=== PATIENT | female | born 1950 | race Caucasian/White ===

== ENCOUNTER 2016-12-31 08:51 | Outpatient (CLI) | payer MEDICARE ==
--- NOTE | 2016-12-31 11:28 | CARDIAC PROCEDURE NOTE ---
DATE OF SERVICE: 12/31/2016 00:00:00 PRIMARY CARE PROVIDER: Milena Neumann PA-C. PROCEDURE: Stress echocardiogram. PROCEDURE SYMPTOMS: Weakness, lightheadedness, and abnormal ECG. CARDIAC RISK FACTORS: Age, hypertension, hyperlipidemia. PREVIOUS CARDIAC PROCEDURES: Failed echo stress test. CURRENT SYMPTOMATOLOGY: None. CLINICAL HISTORY: A 66-year-old woman without known coronary artery disease. INITIAL RESTING VITAL SIGNS: Blood pressure 110/80, heart rate 111. Height 65 inches, weight 178 pounds, BMI 29.6. PROCEDURE AND FINDINGS: The patient's identity and date were verified and consent signed. After resting echocardiogram images were obtained, the patient performed treadmill exercise using a Peterson protocol completing 4 minutes, 54 seconds and an estimated workload of 7.0 metabolic equivalents. Her predicted exercise time was 5:00-6:15. Maximal blood pressure was 156/86 with a heart rate of 130 beats per minute or 85% of maximum predicted heart rate for age. The blood pressure response to exercise was normal. The patient stopped because she was short of air. The resting ECG demonstrated normal sinus rhythm with a single Q-wave noted in lead III. There was 0.5 ST segment depression and upsloping with rare single PVCs. Post-exercise images were obtained immediately on cessation of exercise. The patient was noted to have a 7 mm Q-wave in lead III only on standing, which disappeared with exercise. FINAL IMPRESSION 1. No ECG signs of ischemia, test incomplete, awaiting echocardiographic report. 2. Negative stress test clinically for angina. 3. Rare monomorphic PVCs. 4. Reversible Q-waves in lead III is a positional benign finding. JOB #: [id number] [facility] JOB #:[id number] [facility]
[2016-12-31 17:35] VITALS: BP 110/80
== END 2016-12-31 08:52 | disposition home or self-care (01) ==
LOC: DI 08:51
PROVIDERS: ATTEND Physician Assistant Medical
DX: R53.1 Weakness (principal); R42 Dizziness and giddiness; I10 Essential (primary) hypertension; E78.5 Hyperlipidemia, unspecified
CPT/HCPCS: 93351

== ENCOUNTER 2017-04-20 10:03 | Outpatient (CLI) | payer MEDICARE | END 2017-04-20 10:04 | disposition home or self-care (01) | LOC: SC 10:03 | PROVIDERS: ATTEND Internal Medicine Pulmonary Disease | DX: G47.8 Other sleep disorders (principal); R06.83 Snoring; R53.83 Other fatigue | CPT/HCPCS: 99203; G0463; 99212 ==

== ENCOUNTER 2017-06-07 19:27 | Outpatient (CLI) | payer MEDICARE | END 2017-06-07 19:28 | disposition home or self-care (01) | LOC: SC 19:27 | PROVIDERS: ATTEND Internal Medicine Pulmonary Disease | DX: G47.33 Obstructive sleep apnea (adult) (pediatric) (principal); G47.61 Periodic limb movement disorder | CPT/HCPCS: 95810 ==

== ENCOUNTER 2017-06-17 10:27 | Outpatient (CLI) | payer MEDICARE ==
--- NOTE | 2017-06-18 10:19 | Mammography Report ---
DIGITAL SCREENING MAMMOGRAM: 06/17/2017 HISTORY: Routine. COMPARISON: 06/06/2015, 09/14/2013, 08/12/2012, 07/15/2011 and 04/29/2010. TECHNIQUE: Routine CC and MLO projections were obtained of the breasts. FINDINGS: There is extensive fatty replacement of the breast tissue. There is no dominant mass, architectural distortion, skin thickening, suspicious microcalcifications, or interval change. IMPRESSION: NEGATIVE. BI-RADS CODE 1-NEGATIVE. SUGGEST RETURN TO ROUTINE SCREENING IN 12 MONTHS. STANDARD QUALIFYING STATEMENTS: 1. This examination was reviewed with the aid of Computer-Aided Detection (CAD). 2. A negative or benign imaging report should not delay biopsy if clinically suspicious findings are present. Consider surgical consultation if warranted. More than 5% of cancers are not identified by imaging. 3. Dense breasts may obscure an underlying neoplasm. TD: 06/18/2017 10:17
== END 2017-06-17 10:28 | disposition home or self-care (01) ==
LOC: DI.N 10:27
PROVIDERS: ATTEND Family Medicine
DX: Z12.31 Encounter for screening mammogram for malignant neoplasm of breast (principal)
CPT/HCPCS: 77067

== ENCOUNTER 2017-07-05 14:01 | Outpatient (CLI) | payer MEDICARE | END 2017-07-05 14:02 | disposition home or self-care (01) | LOC: SC 14:01 | PROVIDERS: ATTEND Internal Medicine Pulmonary Disease | DX: G47.33 Obstructive sleep apnea (adult) (pediatric) (principal) | CPT/HCPCS: 99213; G0463; 99212 ==

== ENCOUNTER 2017-09-02 12:27 | Outpatient (CLI) | payer MEDICARE ==
--- NOTE | 2017-09-02 15:54 | DEXA Report ---
Procedure Date: 09/02/2017 Accession Number: [id number] / [id number] Procedure: DEX - Dexa Spine and/or Hip CPT Code: FULL RESULT: EXAM: Dexa Spine and/or Hip DATE: 09/02/2017 12:59 PM CLINICAL HISTORY: POST MENOPAUSAL STATUS TECHNIQUE: Dual energy x-ray absorptiometry (DXA) was performed on a [employer] System. Regions measured are the AP Spine, femoral neck, and if needed forearm. COMPARISON: None. In accordance with the International Society for Clinical Densitometry (ISCD) guidelines, data from previous exams may be reanalyzed using current recommendations and techniques. This is done to allow a more accurate basis for comparison with the current study. FINDINGS: The data for the lumbar spine is as follows: BMD (g/cm/cm) T-SCORE Z-SCORE REGION L1 1.334 1.7 2.8 L2 1.348 1.2 2.3 L3 1.390 1.6 2.7 L4 1.460 2.2 3.2 TOTAL 1.393 1.8 2.8 NOTE: All evaluable vertebrae are used for classification The data for the hip is as follows: BMD (g/cm/cm) T-SCORE Z-SCORE REGION Neck 0.946 -0.7 0.6 TOTAL 1.062 0.4 1.4 NOTE: The femoral neck or total proximal femur, whichever is lowest, is used for classification. IMPRESSION: THE WHO CLASSIFICATION BASED ON THE INTERNATIONAL REFERENCE STANDARD IS NORMAL. THE FRACTURE RISK IS NOT INCREASED. RECOMMENDATION: Patients with diagnosis of osteoporosis or osteopenia should have regular bone mineral density assessment. For those eligible for Medicare, routine testing is allowed once every 2 years. Testing frequency can be increased for patients who have rapidly progressing disease or for those who are receiving medical therapy to restore bone mass. COMMENT: World Health Organization (WHO) definitions for osteoporosis and osteopenia: NORMAL BMD: T-score at -1.0 or higher, fracture risk is low OSTEOPENIA BMD: T-score between -1.0 and -2.5, fracture risk is increased. OSTEOPOROSIS BMD: T-score at -2.5 or lower, fracture risk is high. National Osteoporosis Foundation recommends: 1. Obtain adequate dietary calcium (at least 1200 mg per day) and vitamin D (400-800 international units per day). 2. Participate, as appropriate, in regular weightbearing and muscle-strengthening exercise. 3. Avoid tobacco use and reduce alcohol and caffeine intake. 4. For more detailed information see the website at www.NOF.org.
== END 2017-09-02 12:28 | disposition home or self-care (01) ==
LOC: DI 12:27
PROVIDERS: ATTEND Physician Assistant
DX: N95.1 Menopausal and female climacteric states (principal)
CPT/HCPCS: 77080

== ENCOUNTER 2017-09-13 13:18 | Outpatient (CLI) | payer MEDICARE | END 2017-09-13 13:19 | disposition home or self-care (01) | LOC: SC 13:18 | PROVIDERS: ATTEND Internal Medicine Pulmonary Disease | DX: Z53.9 Procedure and treatment not carried out, unspecified reason (principal) ==

== ENCOUNTER 2017-09-27 18:42 | Outpatient (CLI) | payer MEDICARE | END 2017-09-27 18:43 | disposition home or self-care (01) | LOC: SC 18:42 | PROVIDERS: ATTEND Internal Medicine Pulmonary Disease | DX: G47.33 Obstructive sleep apnea (adult) (pediatric) (principal); G47.61 Periodic limb movement disorder | CPT/HCPCS: 95811 ==

== ENCOUNTER 2017-10-04 14:16 | Outpatient (CLI) | payer MEDICARE | END 2017-10-04 14:17 | disposition home or self-care (01) | LOC: SC 14:16 | PROVIDERS: ATTEND Internal Medicine Pulmonary Disease | DX: G47.33 Obstructive sleep apnea (adult) (pediatric) (principal) | CPT/HCPCS: 99213; G0463; 99212 ==

== ENCOUNTER 2017-11-08 15:25 | Outpatient (CLI) | payer MEDICARE | END 2017-11-08 15:26 | disposition home or self-care (01) | LOC: SC 15:25 | PROVIDERS: ATTEND Internal Medicine Pulmonary Disease | DX: G47.33 Obstructive sleep apnea (adult) (pediatric) (principal) | CPT/HCPCS: 99213; G0463; 99212 ==

== ENCOUNTER 2017-11-30 13:55 | Outpatient (CLI) | payer MEDICARE | END 2017-11-30 13:56 | disposition home or self-care (01) | LOC: NS 13:55 | PROVIDERS: ATTEND Physician Assistant | DX: Z71.3 Dietary counseling and surveillance (principal); E78.2 Mixed hyperlipidemia; Z68.30 Body mass index [BMI] 30.0-30.9, adult; E66.09 Other obesity due to excess calories | CPT/HCPCS: 97802 ==

== ENCOUNTER 2018-04-16 17:52 | Outpatient (CLI) | payer MEDICARE | END 2018-04-16 17:53 | disposition critical access hospital (66) | LOC: EMS 17:52 | PROVIDERS: ATTEND Surgery | DX: R07.9 Chest pain, unspecified (principal); F41.9 Anxiety disorder, unspecified; R06.02 Shortness of breath; R11.0 Nausea; R53.83 Other fatigue; R41.0 Disorientation, unspecified | CPT/HCPCS: A0425; A0427 ==

== ENCOUNTER 2018-04-16 18:11 | Emergency (ER) | payer MEDICARE ==
--- NOTE | 2018-04-16 18:26 | ED Physician Documentation ---
History of Present Illness - Stated complaint Stated Complaint: CP - Chief complaint Chief Complaint: Cardiac - Additonal information Additional information: 67-year-old Female presents the emergency department with sudden onset of chest pain, shortness of breath and lightheadedness. The patient's symptoms have resolved since arriving the emergency department. The patient's symptoms improved on their own and there is no clear triggering factors. The patient has had multiple visits to another emergency department for similar symptoms. The patient is pending a referral to cardiology to further assess her increasing symptoms. The patient also reports a racing heart. No other associated symptoms. Symptoms when they occurred were severe and currently the patient has only mild symptoms Review of Systems Constitutional: denies: Fever, Fatigue Eyes: denies: Discharge Ears: denies: Ear pain Nose: denies: Congestion Throat: denies: Sore throat Cardiac: reports: Chest pain / pressure, Palpitations Respiratory: reports: Dyspnea GI: denies: Abdominal Pain : denies: Dysuria Skin: denies: Rash Musculoskeletal: denies: Neck pain Neurologic: reports: Near syncope. denies: Generalized weakness Immunocompromised: denies: Chemotherapy PD PAST MEDICAL HISTORY - Past Medical History Cardiovascular: Hypertension, High cholesterol Endocrine/Autoimmune: HyPOthyroidism Psych: Depression, Anxiety Musculoskeletal: Osteoarthritis, Other - Past Surgical History Past Surgical History: Yes General: Colonoscopy Ortho: Arthroscopic surgery /[employer]ME [employer]APER: Oophrectomy HEENT: Tonsil/Adenoidectomy - Present Medications Home Medications: Ambulatory Orders Medication Instructions Recorded Confirmed Hydrochlorothiazide 25 mg PO DAILY 09/21/12 04/16/18 Levothyroxine [Synthroid] 75 mcg PO DAILY 09/21/12 04/16/18 clonazePAM [Klonopin] 0.5 mg PO DAILY 09/21/12 04/16/18 Losartan [Cozaar] 50 mg PO DAILY 08/01/15 04/16/18 Propranolol [Inderal] 10 mg PO BID 08/01/15 04/16/18 clonazePAM [KlonoPIN] 0.5 mg PO DAILY 08/01/15 04/16/18 traZODone [Desyrel] 100 mg PO DAILY 08/01/15 04/16/18 Desvenlafaxine [Desvenlafaxine ER] 100 mg PO DAILY 04/16/18 04/16/18 - Allergies Allergies/Adverse Reactions: Allergies Allergy/AdvReac Type Severity Reaction Status Date / Time codeine [Codeine] Allergy Intermediate Dizziness Verified 04/16/18 18:15 - Social History Does the pt smoke?: No Smoking Status: Never smoker Does the pt drink ETOH?: No Does the pt have substance abuse?: No - Immunizations Immunizations are current?: Yes - POLST Patient has POLST: No PD ED PE NORMAL - General General: Alert and oriented X 3, No acute distress - HEENT HEENT: Atraumatic, PERRL, EOMI, Ears normal - Neck Neck: Supple, no meningeal sign - Cardiac Cardiac: RRR, Strong equal pulses - Respiratory Respiratory: No respiratory distress - Abdomen Abdomen: Soft, Non tender - Back Back: No CVA TTP - Derm Derm: Normal color - Extremities Extremities: No deformity - Neuro Neuro: Alert and oriented X 3, Normal speech - Psych Psych: Normal mood Results - Vitals Vitals: Vital Signs - 24 hr 04/16/18 04/16/18 04/16/18 18:13 18:22 20:18 Temperature 36 C L Heart Rate 90 100 95 Respiratory 20 20 17 Rate Blood Pressure 152/93 H 152/93 H 141/75 H O2 Saturation 96 99 99 Oxygen O2 Source Room air - EKG (time done) No standard instances Rate: Rate (enter#) (96) Rhythm: NSR [place]: Normal Intervals: Normal [place] QRS: Normal Ischemia: Normal ST segments - Labs Labs: Laboratory Tests 04/16/18 04/16/18 04/16/18 18:25 18:25 18:25 WBC 8.3 RBC 4.73 Hgb 14.7 Hct 43.8 MCV 92.6 MCH 31.2 H MCHC 33.7 RDW 13.2 Plt Count 191 MPV 10.5 Neut # (Auto) 5.3 Lymph # (Auto) 2.3 Vance # (Auto) 0.5 Eos # (Auto) 0.1 Baso # (Auto) 0.0 Absolute Nucleated RBC 0.01 Nucleated RBC % 0.1 D-Dimer Sodium 137 Potassium 3.3 L Chloride 101 Carbon Dioxide 25 Anion Gap 11.0 BUN 15 Creatinine 0.6 Estimated GFR (MDRD) 99 Glucose 134 H Calcium 9.2 Total Bilirubin 0.9 AST 27 ALT 29 Alkaline Phosphatase 84 Troponin I < 0.04 Total Protein 7.5 Albumin 4.0 Globulin 3.5 Albumin/Globulin Ratio 1.1 Lipase 35 04/16/18 18:25 WBC RBC Hgb Hct MCV MCH MCHC RDW Plt Count MPV Neut # (Auto) Lymph # (Auto) Vance # (Auto) Eos # (Auto) Baso # (Auto) Absolute Nucleated RBC Nucleated RBC % D-Dimer 234.3 Sodium Potassium Chloride Carbon Dioxide Anion Gap BUN Creatinine Estimated GFR (MDRD) Glucose Calcium Total Bilirubin AST ALT Alkaline Phosphatase Troponin I Total Protein Albumin Globulin Albumin/Globulin Ratio Lipase - Rads (name of study) CXR Radiology: Final report received, See rad report PD MEDICAL DECISION MAKING - ED course ED course: Given the fact that the patient is having increasing symptoms and this is now her third visit in just a couple weeks for similar symptoms I recommended that we transfer her to a higher level care for a more urgent chest pain rule out and possible echocardiogram and possible evaluation by cardiology symptoms. The patient understands and agrees to the plan. The patient is a [facility] and the [facility] transfer center was contacted and they arrange for transfer to [facility] Departure - Departure Disposition: 02 Transfer Acute Care Hosp Clinical Impression: Chest pain Qualifiers: Chest pain type: unspecified Qualified Code(s): R07.9 - Chest pain, unspecified
[2018-04-16 18:34] LABS: BASOPHILS % (AUTO) 0.6 %; EOSINOPHILS # (AUTO) 0.1 10^3/uL (0.0-0.7); EOSINOPHILS % (AUTO) 1.7 %; HGB - HEMOGLOBIN 14.7 g/dL (12.0-16.0); LYMPHOCYTES # (AUTO) 2.3 10^3/uL (1.5-3.5); LYMPHOCYTES % (AUTO) 27.5 %; MEAN CORPUSCULAR HEMOGLOBIN 31.2 pg (27.0-31.0); MEAN CORPUSCULAR HGB CONC 33.7 g/dL (32.0-36.0); MEAN CORPUSCULAR VOLUME 92.6 fL (81.0-99.0); MEAN PLATELET VOLUME 10.5 fL (7.9-10.8); MONOCYTES # (AUTO) 0.5 10^3/uL (0.0-1.0); NEUTROPHILS # (AUTO) 5.3 10^3/uL (1.5-6.6); NEUTROPHILS % (AUTO) 64.2 %; PLT - PLATELET COUNT 191 10^3/uL (130-450); RED BLOOD COUNT 4.73 10^6/uL (4.20-5.40); RED CELL DISTRIBUTION WIDTH 13.2 % (12.0-15.0); WHITE BLOOD COUNT 8.3 x10^3/uL (4.8-10.8)
[2018-04-16 18:44] LABS: ALBUMIN/GLOBULIN RATIO 1.1 (1.0-2.2); BILIRUBIN,TOTAL 0.9 mg/dL (0.2-1.0); CALCIUM 9.2 mg/dL (8.5-10.3); CREATININE 0.6 mg/dL (0.4-1.0); TOTAL PROTEIN 7.5 g/dL (6.7-8.2)
--- NOTE | 2018-04-16 19:07 | XRAY Report ---
Reason: tightness Procedure Date: 04/16/2018 Accession Number: [id number] / [id number] Procedure: XR - Chest 1 View X-Ray CPT Code: 74436 FULL RESULT: EXAM: CHEST RADIOGRAPHY EXAM DATE: 04/16/2018 06:54 PM. CLINICAL HISTORY: Tightness. COMPARISON: 05/02/2015. TECHNIQUE: 1 view. FINDINGS: Lungs/Pleura: No focal opacities evident. No pleural effusion. No pneumothorax. Mediastinum: Within exam limitations, the cardiomediastinal contour is normal. Other: None. IMPRESSION: Normal single view chest. RADIA
[2018-04-16 20:19] VITALS: BP 141/75
== END 2018-04-16 22:56 | disposition short-term general hospital (02) ==
LOC: EDUNIT# → ED 18:11
DX: R07.9 Chest pain, unspecified (principal); R94.31 Abnormal electrocardiogram [ECG] [EKG]; I10 Essential (primary) hypertension; E78.00 Pure hypercholesterolemia, unspecified; E03.9 Hypothyroidism, unspecified
CPT/HCPCS: 36415; 71045; 80053; 83690; 84484; 85025; 85379; 93005; 99284; 99285

== ENCOUNTER 2018-05-03 17:37 | Outpatient (CLI) | payer MEDICARE ==
--- NOTE | 2018-05-04 11:34 | Ultrasound Report ---
Reason: NEAR SYNCOPE Procedure Date: 05/03/2018 Accession Number: [id number] / [id number] Procedure: US - Carotid Doppler Complete CPT Code: FULL RESULT: EXAM: BILATERAL CAROTID AND VERTEBRAL ARTERY DUPLEX DOPPLER ULTRASOUND: EXAM DATE: 05/03/2018 06:00 PM CLINICAL HISTORY: Near syncope. COMPARISON: None. TECHNIQUE: Grayscale imaging, color Doppler, and duplex spectral Doppler were used to evaluate the carotid and vertebral arteries bilaterally. Static images were obtained. FINDINGS: No significant plaque is identified in the right or left common or internal carotid arteries. Normal antegrade flow is present in bilateral vertebral arteries. VELOCITIES (cm/sec): Right CCA Mid: PSV 72.4 cm/sec CCA Dist: PSV 70.8 cm/sec ICA Prox: PSV 39.2 cm/sec, EDV 10.7 cm/sec ICA Mid: PSV 61.2 cm/sec, EDV 18.4 cm/sec ICA Dist: PSV 71.6 cm/sec, EDV 25.7 cm/sec ECA: PSV 66.4 cm/sec Vert: PSV 45 cm/sec ICA/CCA: 1.0 Left CCA Mid: PSV 71.6 cm/sec CCA Dist: PSV 61.8 cm/sec ICA Prox: PSV 68.4 cm/sec, EDV 23.7 cm/sec ICA Mid: PSV 63.7 cm/sec, EDV 26.8 cm/sec ICA Dist: PSV 58.1 cm/sec, EDV 20 cm/sec ECA: PSV 52.2 cm/sec Vert: PSV 41.1 cm/sec ICA/CCA: 1.1 ICA diameter stenosis: Right: <50% by velocity and <70% by NASCET criteria. Left: <50% by velocity and <70% by NASCET criteria. IMPRESSION: 1. No significant bilateral carotid artery plaquing. 2. In the right carotid artery there are no elevated carotid artery velocities to suggest hemodynamically significant stenosis. 3. In the left carotid artery there are no elevated carotid artery velocities to suggest hemodynamically significant stenosis. 4. Normal antegrade flow is present in bilateral vertebral arteries. General Recommendations: Stenosis =50% ICA - Follow-up ultrasound 6-12 months Stenosis <50% ICA - High Risk Patient with plaque - Follow-up ultrasound 1-2 years Normal Study but High Risk Patient - Follow-up ultrasound 3-5 years Management recommendations and diagnostic criteria are based on current IAC endorsed standards in Carotid Artery Stenosis: Grayscale and Doppler Ultrasound Diagnosis. Validated velocity measurements with angiographic measurements and velocity criteria are extrapolated from diameter data as defined by the Society of Radiologists in Ultrasound Consensus Conference Radiology 2003; 229;340-346. RADIA
== END 2018-05-03 17:38 | disposition home or self-care (01) ==
LOC: DI 17:37
PROVIDERS: ATTEND Internal Medicine Cardiovascular Disease
DX: R55 Syncope and collapse (principal)
CPT/HCPCS: 93880

== ENCOUNTER 2018-05-27 09:29 | Outpatient (CLI) | payer MEDICARE ==
[2018-05-27] MEDS ORDERED: IOPAMIDOL-300 100 ML VIAL ONE (11:07)
[2018-05-27 11:31] LABS: CREATININE 0.7 mg/dL (0.4-1.0)
[2018-05-27 11:44] LABS: CALCIUM 9.6 mg/dL (8.5-10.3)
[2018-05-27] MEDS ORDERED: IOPAMIDOL-300 100 ML VIAL IVP ONE (11:54)
--- NOTE | 2018-05-27 13:32 | CT Report ---
Reason: SHORTNESS OF BREATH Procedure Date: 05/27/2018 Accession Number: [id number] / [id number] Procedure: CT - ANGIO CHEST W/WO CPT Code: FULL RESULT: EXAM: CT ANGIOGRAM CHEST EXAM DATE: 05/27/2018 11:51 AM. CLINICAL HISTORY: SHORTNESS OF BREATH. COMPARISON: CHEST ANGIO 05/03/2015 8:12 PM. TECHNIQUE: Routine helical imaging was performed through the chest in the pulmonary arterial phase. IV Contrast: ISOVUE 300 80mL. Reconstructions: Coronal 3-D MIP reconstructions.Sagittal and coronal. In accordance with CT protocol optimization, one or more of the following dose reduction techniques were utilized for this exam: automated exposure control, adjustment of mA and/or KV based on patient size, or use of iterative reconstructive technique. FINDINGS: Pulmonary Arteries: Diagnostic quality: Adequate through the segmental arteries. No evidence for acute or chronic pulmonary emboli. RV/LV is within normal limits. There is no interventricular septal bowing. There is no reflux of contrast material in the IVC. Lungs/Pleura: Basilar scar/atelectasis. No endobronchial obstruction. No pneumothorax. No pleural effusions. No vascular congestion. Mediastinum: Heart is enlarged. Small pericardial effusion. Small hiatal hernia. No enlarged mediastinal or hilar lymph nodes. Thyroid gland is not distinctly visualized. No mediastinal hematoma. Thoracic Aorta: Thoracic aortic calcified plaque. Maximal size of the mid ascending aorta measures 3.8 cm. Thoracic aorta is tortuous. Upper Abdomen: Included portions of the liver, gallbladder, spleen and pancreas are unremarkable. Adrenal gland thickening bilaterally. Abdominal aortic calcified plaque. Included portions of the kidneys are unremarkable. Included portions of the stomach and upper abdominal bowel are unremarkable except for diverticuli in the colon. Other: Degenerative changes of the thoracic spine. Thoracic scoliosis. No acute osseous abnormalities are identified. IMPRESSION: 1. No evidence of pulmonary embolus. 2. No acute consolidation. 3. Thoracic aortic atherosclerosis. No aneurysm. 4. No acute osseous abnormalities. 5. Small hiatal hernia. RADIA The call report notification system was initiated by Dr. Bipin Eden at 01:22 PM on 05/27/2018. The above call report findings were discussed with Dr Marques Dr by Dr. Bipin Eden at 01:30 PM on 05/27/2018.
== END 2018-05-27 09:30 | disposition home or self-care (01) ==
LOC: DI 09:29
PROVIDERS: ATTEND Family Medicine
DX: R06.02 Shortness of breath (principal); I70.0 Atherosclerosis of aorta; K44.9 Diaphragmatic hernia without obstruction or gangrene
CPT/HCPCS: 36415; 71275; 80048; Q9967

== ENCOUNTER 2018-12-16 10:50 | Outpatient (CLI) | payer MEDICARE ==
--- NOTE | 2018-12-16 11:30 | Mammography Report ---
Reason: LT BREAST PAIN Procedure Date: 12/16/2018 Accession Number: [id number] / [id number] Procedure: ZINA - Diagnostic Dig Bilat CPT Code: FULL RESULT: EXAM: Diagnostic Dig Bilat DATE: 12/16/2018 11:20 AM CLINICAL HISTORY: Inferior left breast pain. TECHNIQUE: (B) - Bilateral CC and MLO views were obtained. COMPARISON: 06/27/2017, 09/14/2013, 08/12/2012 PARENCHYMAL PATTERN: (F) - The breasts demonstrate diffuse fatty replacement bilaterally. . FINDINGS: There are no suspicious masses, calcifications, or areas of distortion. IMPRESSION: Negative examination. BI-RADS category 1. RECOMMENDATION: (ANNUAL) - Recommend routine annual screening mammography. BI-RADS CATEGORY: (1) - Negative. STANDARD QUALIFYING STATEMENTS: 1. This examination was not reviewed with the aid of Computer-Aided Detection (CAD). 2. A negative or benign imaging report should not preclude biopsy if clinically suspicious findings are present. 3. Dense breasts may obscure an underlying neoplasm. 4. This examination was reviewed with the aid of 3D breast imaging (tomosynthesis).
== END 2018-12-16 10:51 | disposition home or self-care (01) ==
LOC: DI 10:50
PROVIDERS: ATTEND Nurse Practitioner
DX: N64.4 Mastodynia (principal)
CPT/HCPCS: 77066

== ENCOUNTER 2019-01-11 14:48 | Outpatient (CLI) | payer MEDICARE ==
[2019-01-11 15:42] VITALS: BP 120/76
--- NOTE | 2019-01-11 15:42 | SLEEP CARE CONSULTATION ---
Information from patient questionnaire entered by Nancie Irvin. I have reviewed and concur with the information entered by Nancie Irvin. This document represents the service I personally performed and the decisions made by me, Eden Santiago, RN, MSN, [employer]. History of Present Illness Previous diagnosis: Mild, Obstructive Sleep Apnea-Hypopnea Syndrome Reason for CPAP/BiPAP follow up: annual Equipment type: CPAP Equipment obtained from: [employer] Mask style: Nasal Mask brand: Respironics (Dreamwear nasal) Backup mask available: No (advised to keep current mask as spare when replaced. ) Last cushion change: 1-2 months ago CPAP Compliance Data - Data Reviewed with Patient Average duration of nightly device use: 7.45 Compliance rate %: 99 (180 days) Current pressure setting (cmH2O): 4-8 Average residual AHI: 8.1 Central apnea: 0.5 Obstructive apnea: 3.8 Hypopnea: 3.6 Subjective Patient concerns: reports: mask discomfort (the mask shifts to cover ear. ), mask leak noise, condensation in mask/hose (rare), nasal congestion (wakes every morning and less with more frequent filter changing ), other (mask dislodging - a few times a week. ). denies: aerophagia, air blowing in eyes, dry mouth, nose, throat, epistaxis Observed to snore while using device: No Current pressure setting perceived as: comfortable On therapy, patient: reports: sleeping better, awakening more refreshed, being more awake and alert during the day, more rested overall. denies: drowsiness while driving Initial [place] Sleepiness Scale score: 8 Current [place] Sleepiness Scale score: 1 Allergies and Home Medications Known drug allergies: Yes (codiene) Home medication list reviewed: Yes Allergy and home medication list: Klonopin 0.5mg tab one daily at bedtime Propranolol HCL 10mg tab one twice daily Trazodone HCL 100mg tab one daily Levothyroxine Sodium 75mcg tab one daily Losartan Potassium 50mg tab one daily Venlafaxine 100mg tab one daily in the morning Review of Systems Review of systems same as previous: No (in ER and informed dehydrated / irreg heart rate and HCTZ stopped) Physical Exam Blood Pressure: 120/76 Cuff size: regular Heart Rate: 82 O2 Saturation: 96 Height: 5 ft 5.75 in Weight: 187 lb Body Mass Index: 30.4 BMI Classification: Obesity Class 1 Impression and Plan 1. Obstructive Sleep Apnea-Hypopnea Syndrome, mild, with good treatment compliance and elevated residual apnea. On CPAP therapy, the patient has better sleep quality and is more rested overall. To prevent mask from dislodging, I will order the new headgear adaptor. patient to contact me if any problem getting so I can contact the Rep. This should reduce mask leaks and elevated residual AHI. In addition, I will adjust her CPAP pressure to [id number]. She is to contact me if the pressure change is uncomfortable so that it can be adjusted. If unable to get strap covers from [employer], I gave her information about Pad A cheek strap covers. To reduce ear discomfort when sleeping on her side, I showed her a sample CPAP pillow. This style and others can be bought online for about $60. For nasal congestion, she was shown how to adjust humidity higher and heated hose with rationale discussed and handout from [employer] given. Patient's apnea severity and rationale for treatment to reduce apnea, improve sleep quality and reduce cardiovascular and cerebrovascular events was reviewed. I also reviewed the benefit of consistent device use of CPAP for hypertension. Since her apnea is more severe supine, she is advised to avoid supine sleep if unable to use CPAP. * * Change CPAP pressure to 8-12 cmH2O * headgear adaptor * strap cover * adjust humidity * CPAP pillow * Notify me if snoring with mask or feeling that the pressure is too much or too little * Attempt to lose weight -shes trying and aware health risks * Return for follow up in 2 months , or sooner if concerns arise I spent 100% of this 35 minute visit face to face with the patient with greater than 50% of this was spent time counseling the patient and coordination of care.
== END 2019-01-11 14:49 | disposition home or self-care (01) ==
LOC: SC 14:48
PROVIDERS: ATTEND Nurse Practitioner Family
DX: G47.33 Obstructive sleep apnea (adult) (pediatric) (principal); E66.9 Obesity, unspecified; Z68.30 Body mass index [BMI] 30.0-30.9, adult
CPT/HCPCS: 99214; G0463; 99212

== ENCOUNTER 2019-03-13 13:52 | Outpatient (CLI) | payer MEDICARE ==
[2019-03-13 14:42] VITALS: BP 120/70
--- NOTE | 2019-03-13 14:42 | SLEEP CARE CONSULTATION ---
Information from patient questionnaire entered by Nancie Irvni. I have reviewed and concur with the information entered by Nancie Irvin. This document represents the service I personally performed and the decisions made by me, Eden Santiago, RN, MSN, DIRECTOR OF COMPLIANCE. History of Present Illness Previous diagnosis: Mild, Obstructive Sleep Apnea-Hypopnea Syndrome AHI: 9.9 Reason for follow up: other (2 month) Equipment type: CPAP Equipment obtained from: [employer] Mask style: Nasal Mask brand: Respironics Last cushion change: not for a while HPI additional information: She did not get the headgear adaptor so the mask is dislodging in sleep. She has called the supply contact and there does not seem to be any continuity. The increase in pressure range seems better. Her residual seems less and she is waking less to use bathroom during the night. She is also more rested during the day. She did not get strap covers from [employer] and did not order from [employer]. CPAP Compliance Data - Data Reviewed with Patient Average duration of nightly device use: 8.7 Compliance rate %: 100 (60 days) Current pressure setting (cmH2O): 8-12 Humidity settin Average residual AHI: 4.6 Subjective Patient concerns: reports: mask discomfort (bilaterall skin irritation in front of ears irritated by mask. ), nasal congestion (chronic intermittent ), other (mask continues to dislodge in sleep in sleep 5 times in night ). denies: aerophagia, air blowing in eyes, mask leak noise, condensation in mask/hose, dry mouth, nose, throat, epistaxis Observed to snore while using device: No (single ) Current pressure setting perceived as: comfortable On therapy, patient: reports: sleeping better, awakening more refreshed, being more awake and alert during the day, more rested overall. denies: drowsiness while driving Initial [place] Sleepiness Scale score: 8 Current [place] Sleepiness Scale score: 1 Allergies and Home Medications Known drug allergies: Yes Home medication list reviewed: Yes (stopped hydrochlorthiazide, clarified only takes klonopin daily as change. ) Review of Systems Review of systems same as previous: Yes Physical Exam Blood Pressure: 120/70 Cuff size: long Heart Rate: 72 O2 Saturation: 97 Height: 5 ft 5.75 in Weight: 187 lb 12.8 oz Body Mass Index: 30.5 BMI Classification: Obesity Class 1 Impression and Plan 1. Obstructive Sleep Apnea-Hypopnea Syndrome, mild , with good treatment compliance and good apnea control. The new pressure range reduced residual AHI to normal and improved patient sleep quality and restfulness. Patient is at top of current pressure range so will allow patient to lose some weight without further adjustment. To reduce mask dislodgment in sleep, I again requested the headgear adaptor. I will also check with the Rep for Respironics. In addition, I ordered the cloth covers that are supposed to come with the mask body to reduce skin irritation in front of bilateral ears. It was checked by senior quality assurance specialist and no concerns. If unable to get new covers, she can order from [employer]. If unable to get new headgear adaptor , she can consider a mask refitting for new style. To reduce mask leaks further, she is advised to change her mask cushions at least monthly and as often as every 2 weeks. Patient's apnea severity and rationale for treatment to reduce apnea, improve sleep quality and reduce cardiovascular and cerebrovascular events was reviewed. Since her apnea is worse on her back, she is advised to avoid sleeping supine if unable to use CPAP. I also reviewed the benefit of consistent device use of CPAP for hypertension, anxiety. * Continue CPAP pressure at 8-12 cmH2O * Try cloth covers * headgear adaptor * new mask fitting if no adaptor for current mask * change mask cushion more often * Notify me if snoring with mask or feeling that the pressure is too much or too little * Attempt to lose weight * Call this office if any problems using CPAP * Return for follow up in 1 year , or sooner if concerns arise Time Spent with Patient (minutes): 30 I spent 100% of this visit face to face with the patient with greater than 50% of this was spent time counseling the patient and coordination of care.
== END 2019-03-13 13:53 | disposition home or self-care (01) ==
LOC: SC 13:52
PROVIDERS: ATTEND Nurse Practitioner Family
DX: G47.33 Obstructive sleep apnea (adult) (pediatric) (principal); E66.9 Obesity, unspecified; Z68.30 Body mass index [BMI] 30.0-30.9, adult
CPT/HCPCS: 99214; G0463; 99212

== ENCOUNTER 2020-03-28 13:10 | Outpatient (CLI) | payer MEDICARE ==
--- NOTE | 2020-03-28 10:04 | SLEEP CARE CONSULTATION ---
Information from patient questionnaire entered by Nancie Irvin. I have reviewed and concur with the information entered by Nancie Irvin. This document represents the service I personally performed and the decisions made by me, Eden Santiago, RN, MSN, HOTEL REGISTRATION CLERK. History of Present Illness Service Date and Time: 03/28/2020 0930 Previous diagnosis: Mild, Obstructive Sleep Apnea-Hypopnea Syndrome AHI: 9.9 (in 2018) Reason for follow up: annual (last seen 02/2019) Equipment type: CPAP Equipment obtained from: [employer] (getting supplies as needed) Mask style: Nasal Backup mask available: Yes (old mask ) Last cushion change: 3 weeks Prior sleep studies: Yes Year and Where: 2018 - [facility] Type of Sleep Study: Polysomnography HPI additional information: Prior to video telehealth visit I reviewed past visit note. At that time she was having mask problems with the mask dislodging in sleep and skin irritation. Mask refitting was ordered and skin barriers discussed. Patient reports that mask problems were completely resolved with mask fitting and new mask style. CPAP Compliance Data - Data Reviewed with Patient Average duration of nightly device use: 9 hr 21 min Compliance rate %: 99 (180 days) Current pressure setting (cmH2O): 8-12 Humidity setting: auto Average residual AHI: 1.8 Subjective Patient concerns: denies: aerophagia, mask discomfort, air blowing in eyes, mask leak noise, condensation in mask/hose, nasal congestion, dry mouth, nose, throat, epistaxis Observed to snore while using device: No (sleeps alone) Current pressure setting perceived as: comfortable On therapy, patient: reports: sleeping better, awakening more refreshed, being more awake and alert during the day, more rested overall. denies: drowsiness while driving Initial [place] Sleepiness Scale score: 8 (in 2012) Current [place] Sleepiness Scale score: 0 Allergies and Home Medications Known drug allergies: Yes (codiene) Home medication list reviewed: Yes (changes is reduction of trazadone to 50mg/ no other changes from last visit) Review of Systems Review of systems same as previous: Yes Physical Exam Height: 5 ft 5.75 in Weight: 185 lb (no change) Body Mass Index: 30.0 BMI Classification: Obese Impression and Plan 1. Obstructive Sleep Apnea-Hypopnea Syndrome, mild , with good treatment compliance and good apnea control. On CPAP therapy, the patient has better sleep quality and is more rested overall. She is very pleased with benefit of CPAP treatment. Her [place] Sleepiness Scale is 0 and was 8 at initial consultation. Patient has lost weight. Currently patients BMI is 30.5 obesity class . I reviewed with blane emmanuel how obesity increases the risk of apnea, CPAP pressure requirements and overall health risks especially cardiovascular and diabetes. Thus patient is advised to continue to lose weight. Weight loss can be done with reducing portion size, reducing refined foods and balancing content with vegetables, fruit and protein. In addition tracking food intake will allow awareness of how to modify diet to achieve weight loss goals. Also eating more slowly will allow more awareness of food intake and enjoyment of food while assisting patient to modify intake at each meal. A diet consultation can be helpful in achieving optimal weight loss goals. Patient encouraged to discuss their weight loss goals with their PCP and consider a referral to a manager test. Patient agreed with plan. The patient's CPAP pressure range should accommodate some weight loss. Symptoms to report for additional pressure adjustment discussed. Patient's apnea severity and rationale for treatment to reduce apnea, improve sleep quality and reduce cardiovascular and cerebrovascular events was reviewed. I also reviewed the benefit of consistent device use of CPAP for hypertension. Since patient has more severe apnea in supine position, patient advised to avoid supine sleep with pillow positioning if unable to use CPAP while ill or if without electricity to reduce apnea risk. * Continue auto CPAP pressure at 8-12 cmH2O * Notify me if snoring with mask or feeling that the pressure is too much or too little * Attempt to lose weight * Consider diet consultation. * Call this office if any problems using CPAP * Return for follow up in 1 year , or sooner if concerns arise Counseling Topics: Weight loss health impact Visit Type: Telehealth Video Video Type: Doximity Patient Location: Home Location of Provider: Home Patient agrees and consents to this telehealth visit type: Yes Patient agrees to have their insurance billed: Yes Time Spent with Patient (minutes): 18 minutes after 3 tries for video appt. /11 minutes chart review & documen Provider Statement: I spent 100% of the Telehealth Video Call with the patient with greater than 50% spent counseling the patient and coordination of care.
== END 2020-03-28 13:11 | disposition home or self-care (01) ==
LOC: SC 13:10
PROVIDERS: ATTEND Nurse Practitioner Family
DX: G47.33 Obstructive sleep apnea (adult) (pediatric) (principal); E66.9 Obesity, unspecified; Z68.30 Body mass index [BMI] 30.0-30.9, adult

== ENCOUNTER 2020-11-20 08:47 | Outpatient (CLI) | payer MEDICARE ==
--- NOTE | 2020-11-21 13:24 | Mammography Report ---
BILATERAL DIGITAL SCREENING MAMMOGRAM 3D/2D: 11/20/2020 CLINICAL: Routine screening. Comparison is made to exams dated: 12/16/2018 mammogram, 06/17/2017 mammogram, 06/06/2015 mammogram, 09/14 mammogram, 08/12/2012 mammogram, and 07/15/2011 mammogram - [facility]. The tis nicholas of both breasts is predominantly fatty. There are benign calcifications in both breasts. No significant masses, calcifications, or other findings are seen in either breast. There has been no significant interval change. IMPRESSION: BENIGN There is no mammographic evidence of malignancy. A 1 year screening mammogram is recommended. This exam was interpreted at Station ID: [id number]. NOTE: For mammograms, a report in lay terms will be sent to the patient. Approximately 15% of breast malignancies will not be visualized mammographically. In the management of a palpable breast mass, a negative mammogram must not discourage biopsy of a clinically suspicious lesion. Electronically Signed By: Chico Franco acr/penrad:11/20/2020 11:56:30 ACR BI-RADS Category 2: Benign Finding(s) 3342F PARENCHYMAL PATTERN: (F) - The breast(s) demonstrate(s) diffuse fatty replacement. BI-RADS CATEGORY: (2) - 2 RECOMMENDATION: (ANNUAL) - Recommend routine annual screening mammography. [id number] 1 year screening LATERALITY: (B)
== END 2020-11-20 08:48 | disposition home or self-care (01) ==
LOC: DI.N 08:47
DX: Z12.31 Encounter for screening mammogram for malignant neoplasm of breast (principal)

== ENCOUNTER 2020-12-13 08:00 | Outpatient (CLI) | payer MEDICARE | END 2020-12-13 23:59 | disposition home or self-care (01) | LOC: LAB.WCP 08:00 | PROVIDERS: ATTEND Internal Medicine | DX: E55.9 Vitamin D deficiency, unspecified (principal); R53.83 Other fatigue; R00.2 Palpitations; R06.02 Shortness of breath | CPT/HCPCS: 36415; 82306; 82607 ==

== ENCOUNTER 2021-01-03 14:00 | Outpatient (CLI) | payer MEDICARE | END 2021-01-03 23:59 | disposition home or self-care (01) | LOC: LAB.N 14:00 | PROVIDERS: ATTEND Family Medicine | DX: R35.0 Frequency of micturition (principal) | CPT/HCPCS: 87077; 87086; 87181 ==

== ENCOUNTER 2021-02-28 15:01 | Outpatient (CLI) | payer MEDICARE ==
[2021-02-28 17:46] LABS: BASOPHILS # (AUTO) 0.1 10^3/uL (0.0-0.1); BASOPHILS % (AUTO) 0.8 %; BILIRUBIN,URINE NEGATIVE (NEGATIVE); EOSINOPHILS # (AUTO) 0.2 10^3/uL (0.0-0.7); EOSINOPHILS % (AUTO) 2.2 %; GLUCOSE, URINE (UA) NEGATIVE (NEGATIVE); HCT - HEMATOCRIT 46.4 % (37.0-47.0); HGB - HEMOGLOBIN 15.5 g/dL (12.0-16.0); KETONES,URINE (UA) NEGATIVE (NEGATIVE); LEUKOCYTE ESTERASE, URINE NEGATIVE (NEGATIVE); LYMPHOCYTES # (AUTO) 2.4 10^3/uL (1.5-3.5); MEAN CORPUSCULAR HEMOGLOBIN 30.8 pg (27.0-31.0); MEAN CORPUSCULAR HGB CONC 33.4 g/dL (32.0-36.0); MEAN CORPUSCULAR VOLUME 92.1 fL (81.0-99.0); MEAN PLATELET VOLUME 12.8 fL (7.9-10.8); MONOCYTES # (AUTO) 0.6 10^3/uL (0.0-1.0); MONOCYTES % (AUTO) 8.3 %; NEUTROPHILS # (AUTO) 4.4 10^3/uL (1.5-6.6); NEUTROPHILS % (AUTO) 57.3 %; NITRITE,URINE NEGATIVE (NEGATIVE); OCCULT BLOOD,URINE TRACE-INTA (NEGATIVE); PLT - PLATELET COUNT 225 10^3/uL (130-450); PROTEIN,URINE NEGATIVE (NEGATIVE); RED BLOOD COUNT 5.04 10^6/uL (4.20-5.40); RED CELL DISTRIBUTION WIDTH 12.3 % (12.0-15.0); UROBILINOGEN,URINE 0.2 (NORMAL) E.U./dL (NORMAL); WHITE BLOOD COUNT 7.7 x10^3/uL (4.8-10.8)
[2021-02-28 17:53] LABS: CREATININE,URINE 134.4 mg/dL; MICROALBUM/CREATININE RATIO,UR 11.9 ug/mg (<30.0); MICROALBUMIN,URINE 1.6 mg/dL (0-300.0)
[2021-02-28 17:58] LABS: CLARITY,URINE CLEAR (CLEAR); RBC,URINE 0-5 /HPF (0-5); SQUAMOUS EPITHELIAL CELL,UR RARE Squamous (<= Few)
[2021-02-28 17:59] LABS: AMORPHOUS SEDIMENT,UR Few /LPF; BACTERIA,URINE Many /HPF (None Seen)
[2021-02-28 18:10] LABS: ALBUMIN 4.2 g/dL (3.2-5.5); ALBUMIN/GLOBULIN RATIO 1.4 (1.0-2.2); ALKALINE PHOSPHATASE 90 IU/L (42-121); ALT ALANINE AMINOTRANSFERASE 29 IU/L (10-60); AST ASPARTATE AMINOTRANSFERASE 21 IU/L (10-42); BILIRUBIN,TOTAL 1.1 mg/dL (0.2-1.0); BUN - BLOOD UREA NITROGEN 17 mg/dL (6-20); CALCIUM 9.7 mg/dL (8.5-10.3); CARBON DIOXIDE - CO2 27 mmol/L (21-32); CHLORIDE 101 mmol/L (101-111); CHOL/HDL RATIO 4.3 (<4.4); CHOLESTEROL 201 mg/dL; CREATININE 0.5 mg/dL (0.4-1.0); GFR - MDRD 122 (>89); GLUCOSE 97 mg/dL (70-100); HDL CHOLESTEROL 47 mg/dL; LDL CHOLESTEROL,CALCULATED 104 mg/dL; LDL/HDL RATIO 2.2 (<4.4); POTASSIUM 4.4 mmol/L (3.5-5.0); SODIUM 138 mmol/L (135-145); TOTAL PROTEIN 7.3 g/dL (6.7-8.2); TRIGLYCERIDES 249 mg/dL; VLDL CHOLESTEROL 50 mg/dL
[2021-02-28 18:17] LABS: THYROID STIMULATING HORMONE 0.45 uIU/mL (0.34-5.60)
[2021-02-28 18:19] LABS: FREE T4 (FREE THYROXINE) 1.08 ng/dL (0.58-1.64)
[2021-02-28 20:23] LABS: ESTIMATED AVERAGE GLUCOSE 120 mg/dL (70-100); HEMOGLOBIN A1c% 5.8 % (4.27-6.07)
== END 2021-02-28 23:59 | disposition home or self-care (01) ==
LOC: LAB.WCP 15:01
PROVIDERS: ATTEND Nurse Practitioner
DX: I10 Essential (primary) hypertension (principal); Z13.220 Encounter for screening for lipoid disorders; E66.9 Obesity, unspecified; E03.9 Hypothyroidism, unspecified
CPT/HCPCS: 36415; 80053; 80061; 81001; 82043; 82570; 83036; 83721; 84439; 84443; 85025; 87086

== ENCOUNTER 2021-06-10 10:50 | Outpatient (CLI) | payer MEDICARE ==
[2021-06-10 11:18] VITALS: BP 144/100
--- NOTE | 2021-06-10 11:18 | SLEEP CARE CONSULTATION ---
Information from patient questionnaire entered by Wade Saini MA. I have reviewed and concur with the information entered by Wade Saini MA. This document represents the service I personally performed and the decisions made by , Faith Kearns ARNP. History of Present Illness Service Date and Time: 06/10/2021 1050 Previous diagnosis: Mild, Obstructive Sleep Apnea-Hypopnea Syndrome AHI: 9.9 (in 2018) Reason for follow up: annual ( LAST SEEN 03/2020, RESMED,) Equipment type: CPAP Equipment obtained from: [employer] (getting supplies as needed) Mask style: Nasal (over the nose) Backup mask available: Yes (other mask) Last cushion change: 3 weeks ago Prior sleep studies: Yes Year and Where: 2017 - [facility] Type of Sleep Study: Polysomnography HPI additional information: MADI DOE was diagnosed to have mild, AHI 9.9, obstructive sleep apnea- hypopnea syndrome and returned today for CPAP therapy annual follow-up. Sleep Study - Results Type of Sleep Study: Polysomnography Prior sleep studies: Yes Year and Where: 2018 - [facility] CPAP Compliance Data - Data Reviewed with Patient Average duration of nightly device use: 8 HOURS 52 MINUTES Compliance rate %: 100 Current pressure setting (cmH2O): 8-12 Average residual AHI: 0.7 Central apnea: .2 Obstructive apnea: .4 Average large leak: 20.2 Subjective Patient concerns: reports: air blowing in eyes (just needs adjusment), mask leak noise (just needs adjustment), nasal congestion (only when she stops using her device in the morning). denies: aerophagia, mask discomfort, condensation in mask/hose, dry mouth, nose, throat, epistaxis Observed to snore while using device: No Current pressure setting perceived as: comfortable On therapy, patient: reports: sleeping better, awakening more refreshed, being more awake and alert during the day, more rested overall. denies: drowsiness while driving Initial [place] Sleepiness Scale score: 8 (in 2012) Current [place] Sleepiness Scale score: 1 (06/03) Allergies and Home Medications Known drug allergies: Yes (CODEINE) Drug allergies reviewed: Yes Home medication list reviewed: Yes (no changes) Allergy and home medication list: Allergies codeine [Codeine] Allergy (Intermediate, Verified 04/16/18 18:15) Dizziness Review of Systems Review of systems same as previous: Yes (no changes) Physical Exam Vital signs obtained and entered by: CARLOS WILD Blood Pressure: 144/100 (LEFT, PULSE 85, RESP 16, ) Cuff size: wrist Heart Rate: 84 O2 Saturation: 96 (PAPER) Height: 5 ft 5.75 in Weight: 180 lb (CLOTHES) Weight change since last visit: 5 lb loss Body Mass Index: 29.2 BMI Classification: Overweight Impression and Plan 1. Obstructive Sleep Apnea-Hypopnea Syndrome, mild, with excellent treatment compliance and excellent apnea control. On CPAP therapy, the patient has better sleep quality and is more rested overall. Patient occasionally gets some mask leak noises and air blowing into her eyes but she does needs to adjust her mask and this resolves.She states that in the morning she will take her mask off and sleep for another hour and then her nose will feel congested. I encouraged her to use nasal saline spray to help reduce that congestion feeling. She may also be experiencing some nasal dryness and a sample of nasal moisturizer was given to patient and explained how to use. She voiced understanding. Patient's apnea severity and rationale for treatment to reduce apnea, improve sleep quality and reduce cardiovascular and cerebrovascular events was reviewed. I also reviewed the benefit of consistent device use of CPAP for hypertension. 2. Overweight, unspecified. Patient has lost weight since her last visit. Currently patients BMI is 29.2. Obesity increases the risk of apnea, CPAP pressure requirements and overall health risks especially cardiovascular and diabetes. Thus patient is advised to continue to try to lose weight. Weight loss can be done with reducing portion size, reducing refined foods and balancing content with vegetables, fruit and whole grain foods. In addition, patient encouraged to get regular exercise. The patient's CPAP pressure range should accommodate some weight loss. Symptoms to report for additional pressure adjustment discussed. * Continue auto CPAP pressure at 8-12 cmH2O * Notify me if snoring with mask or feeling that the pressure is too much or too little * Continue to try to lose weight * Call this office if any problems using CPAP * Return for follow up in 1 year, or sooner if concerns arise Counseling Topics: Spare mask, Weight loss health impact Visit Type: In Office Time Spent with Patient (minutes): 20 Provider Statement: I spent 100% of the Face to Face Visit with the patient with greater than 50% spent counseling the patient and coordination of care.
== END 2021-06-10 10:51 | disposition home or self-care (01) ==
LOC: SC 10:50
PROVIDERS: ATTEND Nurse Practitioner Family
DX: G47.33 Obstructive sleep apnea (adult) (pediatric) (principal); E66.3 Overweight; Z68.29 Body mass index [BMI] 29.0-29.9, adult
CPT/HCPCS: 99213; G0463; 99212

== ENCOUNTER 2021-07-03 10:47 | Outpatient (CLI) | payer MEDICARE ==
--- NOTE | 2021-07-03 13:50 | DEXA Report ---
PROCEDURE: Dexa Spine and/or Hip INDICATIONS: POST MENOPAUSAL TECHNIQUE: Dual energy x-ray absorptiometry (DXA) was performed on a Telekenex System. Regions measur ed are the AP Spine, femoral neck, and if needed forearm. COMPARISON: 09/02/2017. FINDINGS: Lumbar Spine: Bone Mineral Density 1.492 g/cm/cm,T score 2.4, statistically increased by 6.1% since the prior st udy. Left Hip: Bone Mineral Density 1.071 g/cm/cm,T score 0.5, statistically unchanged from most recent prior study . Left Femoral Neck: Bone Mineral Density 0.905 g/cm/cm, T score -1.0 (T score greater or equal to -1.0: NORMAL) (T score from -1.1 to -2.4: OSTEOPENIA) (T score less than or equal to -2.5 to: OSTEOPOROSIS) Impression: Borderline osteopenia Reviewed by: Davi Morales MD on 07/03/2021 1:49 PM PDT Approved by: Davi Morales MD on 07/03/2021 1:49 PM PDT Station ID: [id number]
== END 2021-07-03 10:48 | disposition home or self-care (01) ==
LOC: DI 10:47
PROVIDERS: ATTEND Nurse Practitioner
DX: Z78.0 Asymptomatic menopausal state (principal); M85.88 Other specified disorders of bone density and structure, other site

== ENCOUNTER 2021-08-04 14:43 | Outpatient (CLI) | payer MEDICARE ==
[2021-08-04 18:01] LABS: ALBUMIN/GLOBULIN RATIO 1.3 (1.0-2.2); BILIRUBIN,TOTAL 0.5 mg/dL (0.2-1.0); CALCIUM 9.3 mg/dL (8.5-10.3); CREATININE 0.6 mg/dL (0.4-1.0); POTASSIUM 4.3 mmol/L (3.5-5.0); TOTAL PROTEIN 7.2 g/dL (6.7-8.2)
== END 2021-08-04 14:44 | disposition home or self-care (01) ==
LOC: LAB.N 14:43
PROVIDERS: ATTEND Psychiatry & Neurology Psychiatry
DX: Z79.899 Other long term (current) drug therapy (principal)
CPT/HCPCS: 36415; 80053

== ENCOUNTER 2022-04-15 08:55 | Outpatient (CLI) | payer MEDICARE ==
[2022-04-15 12:03] LABS: BASOPHILS # (AUTO) 0.1 10^3/uL (0.0-0.1); BASOPHILS % (AUTO) 0.7 %; EOSINOPHILS # (AUTO) 0.1 10^3/uL (0.0-0.7); EOSINOPHILS % (AUTO) 1.6 %; HCT - HEMATOCRIT 46.2 % (37.0-47.0); LYMPHOCYTES # (AUTO) 2.1 10^3/uL (1.5-3.5); LYMPHOCYTES % (AUTO) 30.3 %; MEAN CORPUSCULAR HEMOGLOBIN 30.5 pg (27.0-31.0); MEAN CORPUSCULAR HGB CONC 32.5 g/dL (32.0-36.0); MEAN CORPUSCULAR VOLUME 93.9 fL (81.0-99.0); MEAN PLATELET VOLUME 12.6 fL (7.9-10.8); MONOCYTES # (AUTO) 0.6 10^3/uL (0.0-1.0); MONOCYTES % (AUTO) 8.5 %; NEUTROPHILS # (AUTO) 4.1 10^3/uL (1.5-6.6); NEUTROPHILS % (AUTO) 58.5 %; PLT - PLATELET COUNT 223 10^3/uL (130-450); RED BLOOD COUNT 4.92 10^6/uL (4.20-5.40); RED CELL DISTRIBUTION WIDTH 12.7 % (12.0-15.0); WHITE BLOOD COUNT 6.9 x10^3/uL (4.8-10.8)
[2022-04-15 12:12] LABS: ESTIMATED AVERAGE GLUCOSE 126 mg/dL (70-100)
[2022-04-15 12:23] LABS: BILIRUBIN,URINE NEGATIVE (NEGATIVE); GLUCOSE, URINE (UA) NEGATIVE (NEGATIVE); KETONES,URINE (UA) NEGATIVE (NEGATIVE); LEUKOCYTE ESTERASE, URINE NEGATIVE (NEGATIVE); NITRITE,URINE NEGATIVE (NEGATIVE); OCCULT BLOOD,URINE TRACE-INTA (NEGATIVE); PROTEIN,URINE NEGATIVE (NEGATIVE); UROBILINOGEN,URINE 0.2 (NORMAL) E.U./dL (NORMAL)
[2022-04-15 12:28] LABS: ALBUMIN/GLOBULIN RATIO 1.1 (1.0-2.2); ALKALINE PHOSPHATASE 82 IU/L (42-121); ALT ALANINE AMINOTRANSFERASE 27 IU/L (10-60); AMYLASE 49 U/L (28-100); AST ASPARTATE AMINOTRANSFERASE 20 IU/L (10-42); BILIRUBIN,TOTAL 0.8 mg/dL (0.2-1.0); BUN - BLOOD UREA NITROGEN 15 mg/dL (6-20); CALCIUM 9.6 mg/dL (8.5-10.3); CARBON DIOXIDE - CO2 28 mmol/L (21-32); CHLORIDE 102 mmol/L (101-111); CHOL/HDL RATIO 3.8 (<4.4); CHOLESTEROL 199 mg/dL; CREATININE 0.7 mg/dL (0.4-1.0); GFR - MDRD 82 (>89); GLUCOSE 109 mg/dL (70-100); HDL CHOLESTEROL 53 mg/dL; LDL CHOLESTEROL,CALCULATED 118 mg/dL; LDL/HDL RATIO 2.2 (<4.4); LIPASE 35 U/L (22-51); POTASSIUM 4.4 mmol/L (3.5-5.0); SODIUM 142 mmol/L (135-145); TOTAL PROTEIN 7.6 g/dL (6.7-8.2); TRIGLYCERIDES 138 mg/dL; VLDL CHOLESTEROL 28 mg/dL
[2022-04-15 12:34] LABS: THYROID STIMULATING HORMONE 0.27 uIU/mL (0.34-5.60)
[2022-04-15 12:36] LABS: CLARITY,URINE CLOUDY (CLEAR); FREE T4 (FREE THYROXINE) 1.19 ng/dL (0.58-1.64)
[2022-04-15 12:37] LABS: AMORPHOUS SEDIMENT,UR Marked /LPF; BACTERIA,URINE Few /HPF (None Seen); RBC,URINE 0-5 /HPF (0-5); SQUAMOUS EPITHELIAL CELL,UR FEW Squamous (<= Few); WBC,URINE 0-3 /HPF (0-5)
== END 2022-04-15 08:56 | disposition home or self-care (01) ==
LOC: LAB.N 08:55
PROVIDERS: ATTEND Nurse Practitioner
DX: E78.00 Pure hypercholesterolemia, unspecified (principal); R73.03 Prediabetes; E03.9 Hypothyroidism, unspecified
CPT/HCPCS: 36415; 80053; 80061; 81001; 81003; 82150; 83036; 83690; 83721; 84439; 84443; 85025; 87086

== ENCOUNTER 2022-05-25 13:16 | Outpatient (CLI) | payer MEDICARE ==
--- NOTE | 2022-05-26 10:37 | Mammography Report ---
BILATERAL DIGITAL SCREENING MAMMOGRAM 3D/2D: 05/25/2022 CLINICAL: Routine screening. Comparison is made to exams dated: 11/20/2020 mammogram, 12/16/2018 mammogram, 06/17/2017 mammogram, and 06/06/2015 mammogram - [facility]. Both breasts are almost entirely fatty (category a/<25% glandular tissue). There are benign calcifications in both breasts. No significant masses, calcifications, or other findings are seen in either breast. There has been no significant interval change. IMPRESSION: BENIGN There is no mammographic evidence of malignancy. A 1 year screening mammogram is recommended. Based on the Tyrer Cuzick model (a risk assessment model) the patients lifetime risk is 4.8% and her 10 year risk is 3.6%. According to the ACR, ACS, and NCCN guidelines, an annual breast MRI exam becca g with mammogram is recommended if the patients lifetime risk is 20% or greater. This exam was interpreted at Station ID: [id number]. NOTE: For mammograms, a report in lay terms will be sent to the patient. Approximately 15% of breast malignancies will not be visualized mammographically. In the management of a palpable breast mass, a negative mammogram must not discourage biopsy of a clinically suspicious lesion. Electronically Signed By: Fortino Britton M.D. [facility] [place], [place]:05/25/2022 18:20:10 letter sent: No_Letter ACR BI-RADS Category 2: Benign Finding(s) 3342F PARENCHYMAL PATTERN: (F) - The breast(s) demonstrate(s) diffuse fatty replacement. BI-RADS CATEGORY: (2) - 2 Mammogram [id number] 1 year screening LATERALITY: (B)
== END 2022-05-25 13:17 | disposition home or self-care (01) ==
LOC: DI.N 13:16
DX: Z12.31 Encounter for screening mammogram for malignant neoplasm of breast (principal)

== ENCOUNTER 2022-05-28 08:49 | Outpatient (CLI) | payer MEDICARE ==
[2022-05-28 15:52] LABS: THYROID STIMULATING HORMONE 0.73 uIU/mL (0.34-5.60)
[2022-05-28 15:54] LABS: FREE T4 (FREE THYROXINE) 0.89 ng/dL (0.58-1.64)
== END 2022-05-28 08:50 | disposition home or self-care (01) ==
LOC: LAB.N 08:49
PROVIDERS: ATTEND Internal Medicine Endocrinology, Diabetes & Metabolism
DX: E89.0 Postprocedural hypothyroidism (principal)
CPT/HCPCS: 36415; 84439; 84443

== ENCOUNTER 2022-07-13 14:44 | Outpatient (CLI) | payer MEDICARE | END 2022-07-13 14:45 | disposition home or self-care (01) | LOC: MAC.MOP 14:44 | PROVIDERS: ATTEND Nurse Practitioner | DX: R73.03 Prediabetes (principal) | CPT/HCPCS: 93246 ==

== ENCOUNTER 2022-08-04 10:30 | Outpatient (CLI) | payer MEDICARE | END 2022-08-04 10:31 | disposition home or self-care (01) | LOC: MAC.INF 10:30 | PROVIDERS: ATTEND Nurse Practitioner | DX: R73.03 Prediabetes (principal); I47.1 Supraventricular tachycardia; I49.1 Atrial premature depolarization; I49.3 Ventricular premature depolarization | CPT/HCPCS: 93248 ==

== ENCOUNTER 2022-10-26 12:35 | Outpatient (CLI) | payer MEDICARE ==
[2022-10-26 18:37] LABS: THYROID STIMULATING HORMONE 0.33 uIU/mL (0.34-5.60)
== END 2022-10-26 12:36 | disposition home or self-care (01) ==
LOC: LAB.N 12:35
PROVIDERS: ATTEND Internal Medicine Endocrinology, Diabetes & Metabolism
DX: E89.0 Postprocedural hypothyroidism (principal)
CPT/HCPCS: 36415; 84439; 84443

== ENCOUNTER 2022-12-28 09:46 | Outpatient (CLI) | payer MEDICARE ==
[2022-12-28 13:33] LABS: THYROID STIMULATING HORMONE 0.59 uIU/mL (0.34-5.60)
== END 2022-12-28 09:47 | disposition home or self-care (01) ==
LOC: LAB.N 09:46
PROVIDERS: ATTEND Internal Medicine Endocrinology, Diabetes & Metabolism
DX: E89.0 Postprocedural hypothyroidism (principal)
CPT/HCPCS: 36415; 84439; 84443

== ENCOUNTER 2023-01-20 14:54 | Outpatient (CLI) | payer MEDICARE ==
--- NOTE | 2023-01-20 15:14 | Sleep Patient Instructions ---
Sleep Center Visit Summary - Patient Visit Information Reason for Visit: Annual visit - Patient Instructions Additional Instructions: You will continue with CPAP therapy with pressure set at 8-12 cmH2O. A supply prescription will be updated with your DME supplier. I have added to replace your CPAP, please call us to make compliance followup once you get your CPAP at home. We encourage you to continue to try to lose weight. Please follow up with the sleep care office a month after using new CPAP. - Clinic Information Contact: [facility] [address] [place] [address] [email or web address] T: [phone]
--- NOTE | 2023-01-20 15:16 | SLEEP CARE CONSULTATION ---
Information from patient questionnaire entered by Deanna Dominique. I have reviewed and concur with the information entered by Deanna Dominique. This document represents the service I personally performed and the decisions made by me, Faith Kearns ARNP. History of Present Illness Service Date and Time: 01/20/2023 1454 Previous diagnosis: Mild, Obstructive Sleep Apnea-Hypopnea Syndrome AHI: 9.9 (in 2018) Reason for follow up: annual (LAST SEEN 01/2022) Equipment type: CPAP (RESMED Airsense 10; MACHINE MALFUNTIONING) Equipment obtained from: [employer] (getting supplies as needed) Mask style: Nasal (over the nose) Backup mask available: Yes Last cushion change: 1 week [facility] Type [facility]: [facility] HPI additional information: MADI DOE was diagnosed to have mild, AHI 9.9, obstructive sleep apnea- hypopnea syndrome and returned today for CPAP therapy annual follow-up. Sleep Study - Results Type of Sleep Study: Polysomnography Prior [facility]: Yes [facility] Compliance Data - Data Reviewed with Patient Average duration of nightly device use: 8 hours 25 minutes Compliance rate %: 100 (01/16/2022-01/14/23; 364/364 days used) Current pressure setting (cmH2O): 8-12 (avg 11.3) Average residual AHI: 1.1 Central apnea: 0.3 Obstructive apnea: 0.4 Hypopnea: 0.1 Average large leak: 0.4 L/min Subjective Patient concerns: reports: nasal congestion, other (humidifier has quit working). denies: aerophagia, mask discomfort, air blowing in eyes, mask leak noise, condensation in mask/hose, dry mouth, nose, throat, epistaxis Observed to snore while using device: No Current pressure setting perceived as: comfortable On therapy, patient: reports: sleeping better, awakening more refreshed, being more awake and alert during the day, more rested overall. denies: drowsiness while driving Initial [place] Sleepiness Scale score: 8 (in 2012) Current [place] Sleepiness Scale score: 2 (01/20/23) Allergies and Home Medications Known drug allergies: Yes (codeine) Drug allergies reviewed: Yes Home medication list reviewed: Yes (new since May, Amlodipine) Allergy and home medication list: Allergies codeine [Codeine] Allergy (Intermediate, Verified 01/19/23 15:51) Dizziness Home Medications Medication Instructions Recorded Confirmed Last Taken Type Hydrochlorothiazide 25 mg PO DAILY 09/21/12 01/20/23 09/20/12 History Levothyroxine [Synthroid] 75 mcg PO DAILY 09/21/12 01/20/23 08/01/15 History Losartan [Cozaar] 50 mg PO DAILY 08/01/15 01/20/23 08/02/15 History Propranolol [Inderal] 10 mg PO BID 08/01/15 01/20/23 08/02/15 History clonazePAM [KlonoPIN] 0.5 mg PO DAILY 08/01/15 01/20/23 08/01/15 History traZODone [Desyrel] 100 mg PO DAILY 08/01/15 01/20/23 08/01/15 History Desvenlafaxine [Desvenlafaxine ER] 100 mg PO DAILY 04/16/18 01/20/23 Unknown History amLODIPine [Norvasc] See Rx Instructions .ROUTE .COMPLEX 01/20/23 01/20/23 Unknown History Review of Systems Review of systems same as previous: Yes (NO CHANGE) Physical Exam Vital signs obtained and entered by: DEANNA Krishnan MA Blood Pressure: 122/76 (LEFT ARM) Cuff size: regular Heart Rate: 92 O2 Saturation: 97 Height: 5 ft 5.75 in Weight: 194 lb 3.2 oz Weight change since last visit: 14 lbs gain Body Mass Index: 31.6 BMI Classification: Obese Impression and Plan 1. Obstructive Sleep Apnea-Hypopnea Syndrome, mild, with good treatment compliance and good apnea control. On CPAP therapy, the patient has better sleep quality and is more rested overall. She last updated her CPAP in 07/2017. The patients CPAP is over 5 years old and of reasonable use. The humidifier is not working on her CPAP. Thus, the CPAP will be updated. The new CPAPs also have a better humidity system which could assist control of patients dryness symptoms. A DWO prescription will be made. Compliance guidelines for new device and follow up discussed. Patient's apnea severity and rationale for treatment to reduce apnea, improve sleep quality and reduce cardiovascular and cerebrovascular events was reviewed. I also reviewed the benefit of consistent device use of CPAP for hypertension. 2. Obesity, unspecified. Currently patients BMI is 31.6. Obesity increases the risk of apnea, CPAP pressure requirements and overall health risks especially cardiovascular and diabetes. Thus patient is advised to lose weight. * Continue auto CPAP pressure at 8-12 cmH2O * Update machine * Update supply prescription * Notify me if snoring with mask or feeling that the pressure is too much or too little * Attempt to lose weight * Call this office if any problems using CPAP * Return for follow up one month after obtaining new device, or sooner if concerns arise Counseling Topics: Spare mask, Weight loss health impact Prescriptions: Auto CPAP (new device) Follow up with Sleep Care in: other (a month after obtaining new CPAP) Visit Type: In Office Time Spent with Patient (minutes): 20 Provider Statement: I spent 100% of the Face to Face Visit with the patient with greater than 50% spent counseling the patient and coordination of care.
[2023-01-20 15:34] VITALS: BP 122/76; O2SAT 97
== END 2023-01-20 14:55 | disposition home or self-care (01) ==
LOC: SC 14:54
PROVIDERS: ATTEND Nurse Practitioner Family
DX: G47.33 Obstructive sleep apnea (adult) (pediatric) (principal); E66.9 Obesity, unspecified; Z68.31 Body mass index [BMI] 31.0-31.9, adult
CPT/HCPCS: 99213; G0463; 99212

== ENCOUNTER 2023-03-25 09:50 | Outpatient (CLI) | payer MEDICARE ==
[2023-03-25 12:20] LABS: BASOPHILS # (AUTO) 0.1 10^3/uL (0.0-0.1); BASOPHILS % (AUTO) 0.8 %; EOSINOPHILS # (AUTO) 0.1 10^3/uL (0.0-0.7); EOSINOPHILS % (AUTO) 2.3 %; HCT - HEMATOCRIT 45.1 % (37.0-47.0); HGB - HEMOGLOBIN 14.6 g/dL (12.0-16.0); LYMPHOCYTES # (AUTO) 1.9 10^3/uL (1.5-3.5); LYMPHOCYTES % (AUTO) 31.5 %; MEAN CORPUSCULAR HEMOGLOBIN 30.2 pg (27.0-31.0); MEAN CORPUSCULAR HGB CONC 32.4 g/dL (32.0-36.0); MEAN CORPUSCULAR VOLUME 93.4 fL (81.0-99.0); MEAN PLATELET VOLUME 12.6 fL (7.9-10.8); MONOCYTES # (AUTO) 0.5 10^3/uL (0.0-1.0); MONOCYTES % (AUTO) 8.3 %; NEUTROPHILS # (AUTO) 3.5 10^3/uL (1.5-6.6); NEUTROPHILS % (AUTO) 56.8 %; PLT - PLATELET COUNT 223 10^3/uL (130-450); RED BLOOD COUNT 4.83 10^6/uL (4.20-5.40); RED CELL DISTRIBUTION WIDTH 12.8 % (12.0-15.0); WHITE BLOOD COUNT 6.1 x10^3/uL (4.8-10.8)
[2023-03-25 12:40] LABS: % IRON SATURATION 23 % (20-50); ALBUMIN 4.2 g/dL (3.2-5.5); ALBUMIN/GLOBULIN RATIO 1.4 (1.0-2.2); ALKALINE PHOSPHATASE 86 IU/L (42-121); ALT ALANINE AMINOTRANSFERASE 22 IU/L (10-60); AST ASPARTATE AMINOTRANSFERASE 16 IU/L (10-42); BILIRUBIN,TOTAL 0.6 mg/dL (0.2-1.0); BUN - BLOOD UREA NITROGEN 13 mg/dL (6-20); CALCIUM 9.8 mg/dL (8.5-10.3); CARBON DIOXIDE - CO2 32 mmol/L (21-32); CHLORIDE 104 mmol/L (101-111); CREATININE 0.6 mg/dL (0.6-1.3); CRP - C-REACTIVE PROTEIN < 0.5 mg/dL (<0.5); GFR - MDRD 98 (>89); GLUCOSE 107 mg/dL (74-104); IRON 103 ug/dL (50-212); SODIUM 140 mmol/L (135-145); TOTAL IRON BINDING CAPACITY 454 ug/dL (250-450); TOTAL PROTEIN 7.2 g/dL (6.4-8.9); TRANSFERRIN 324 mg/dL (203-362)
[2023-03-25 12:46] LABS: THYROID STIMULATING HORMONE 1.22 uIU/mL (0.34-5.60)
[2023-03-25 12:52] LABS: FERRITIN 71.4 ng/mL (11.0-306.8)
[2023-03-26 21:30] LABS: T-TRANSGLUTAMINASE (TTG) IGA <2 U/mL (0-3); T-TRANSGLUTAMINASE (TTG) IGG 3 U/mL (0-5)
== END 2023-03-25 09:51 | disposition home or self-care (01) ==
LOC: LAB.N 09:50
PROVIDERS: ATTEND Nurse Practitioner
DX: R53.83 Other fatigue (principal); R19.7 Diarrhea, unspecified
CPT/HCPCS: 36415; 80053; 82728; 83540; 84443; 84466; 85025; 85651; 86140; 86364